=== PATIENT | female | born 1995 | race African-American/Black ===

== ENCOUNTER 2021-04-13 12:02 | Emergency (ER) | payer OTHER ==
[~2021-04-13] VITALS: Ht 149.9 cm; Wt 45.0 kg
[2021-04-13] MEDS ORDERED: SODIUM CHLORIDE 0.9% 1,000 ML IV ONE ×2 (12:15→12:45)
[2021-04-13 12:44] LABS: BASOPHILS % 0.5 % (0.0-2.0); EOSINOPHILS % 0.5 % (0.0-5.0); HEMATOCRIT. 40.3 % (36.0-48.0); LYMPHOCYTES % 15.8 % (20.0-50.0); MEAN CORPUSCULAR VOLUME 77.8 fL (81.0-99.0); MEAN PLATELET VOLUME 7.6 fl (7.4-10.4); MONOCYTES % 11.4 % (2.0-8.0); NEUTROPHILS % 71.8 % (40.0-76.0); PLATELET 443 x1000/uL (130-400); RED BLOOD CELL COUNT 5.17 mill/uL (4.2-5.4); RED CELL DISTRIBUTION WIDTH 15.6 % (11.6-14.6)
[2021-04-13 12:50] LABS: CHLORIDE 106 mEq/L (98-107)
[2021-04-13] MEDS ORDERED: ONDANSETRON HCL 4MG/2ML INJ IV ONE ×2 (13:00→15:15)
[2021-04-13] MEDS ORDERED: LIDOCAINE HCL 1% 20ML VIAL (Pyxis) INJ INFIL SCH (13:15)
[2021-04-13] MEDS ORDERED: LIDOCAINE HCL/PF 1% 10 MG/ML 5ML VIAL INFIL ONE (13:15)
[2021-04-13] MEDS ORDERED: HYDROCODONE/ACETAMINOPHEN 5/325MG TABLET PO NR (14:15)
[2021-04-13] MEDS ORDERED: HYDR-4001 MT (14:51)
[2021-04-13] MEDS ORDERED: ONDA4TAB5 MT (14:53)
[2021-04-13] MEDS ORDERED: METR500T MT (14:53)
[2021-04-13] MEDS ORDERED: SULF1TAB48 MT (14:53)
[2021-04-13 15:29] VITALS: BP 108/59
== END 2021-04-13 15:57 | disposition home or self-care (01) ==
LOC: ER 13:25
DX: N75.1 Abscess of Bartholin's gland (principal); Z79.899 Other long term (current) drug therapy; Z20.822 Contact with and (suspected) exposure to COVID-19
CPT/HCPCS: 36415; 56420; 71045; 80053; 81025; 83605; 85025; 87040; 87426; 93005; 96361; 96374; 96376; 99285; J2405; J3490; J7030